=== PATIENT | male | born 1980 | race Caucasian/White ===

== ENCOUNTER 2018-11-16 16:04 | Emergency (ER) | payer SELFPAY ==
[~2018-11-16] VITALS: Ht 170.2 cm; Wt 90.9 kg
[2018-11-16 16:08] VITALS: TEMP 97.5
[2018-11-16 16:23] LABS: INR 1.2 (0.8-3.0); PROTHROMBIN TIME 13.4 SECONDS (9.7-12.8)
[2018-11-16 16:25] LABS: BASO % 0.3 % (0.0-2.0); EOS % 0.2 % (0-4.0); GRAN # 6.2 (1.4-6.5); GRAN % 72.1 % (42.2-75.2); HEMATOCRIT 41.3 % (42.0-52.0); HEMOGLOBIN 14.4 g/dl (13.5-18.0); LYMPH # 1.7 (1.2-3.4); LYMPH % 19.6 % (20.0-51.0); MEAN CELL VOLUME 84 fl (80.0-100.0); MEAN CORPUSCULAR HEMOGLOBIN 29 pg (27.0-31.0); MEAN CORPUSCULAR HGB CONC 35 g/dl (33.0-37.0); MEAN PLATELET VOLUME 9.2 fl (7.4-10.4); MONO # 0.6 (0.1-0.6); MONO % 7.3 % (1.7-9.3); PLATELET COUNT 319 K/mm3 (130-400); RED BLOOD COUNT 4.94 M/mm3 (4.20-5.60); REDCELL DISTRIBUTION WIDTH-CV 11.9 % (11.5-14.5)
[2018-11-16] MEDS ORDERED: TYLENOL 500MG500 MG PO (16:25)
[2018-11-16 16:37] LABS: ALANINE AMINOTRANSFERASE 47 U/L (21-72); ALBUMIN 4.5 gm/dL (3.5-5.0); ALKALINE PHOSPHATASE 80 U/L (50-136); ANION GAP 10 mmol/L (7-16); AST,SGOT 38 U/L (15-37); BILIRUBIN,TOTAL 1.8 mg/dL (0.0-1.0); BLOOD UREA NITROGEN 17 mg/dL (9-20); CALCIUM 9.1 mg/dL (8.4-10.2); CARBON DIOXIDE 21 mmol/L (22-30); CHLORIDE 106 mmol/L (98-107); CREATININE, serum 1.01 (0.66-1.25); GLUCOSE 93 mg/dL (74-106); POTASSIUM 3.3 mmol/L (3.4-5.0); SODIUM 136 mmol/L (137-145); TOTAL PROTEIN 7.7 gm/dL (6.4-8.2)
[2018-11-16 16:38] LABS: C-REACTIVE PROTEIN < 0.5 mg/dL (0.0-0.9)
[2018-11-16 18:04] LABS: COLLECTION METHOD CLEAN CATCH
[2018-11-16 18:09] LABS: PH 7 (5-8); SQUAMOUS EPITHELIAL None Seen /hpf; URINE APPEARANCE Clear; URINE BACTERIA None Seen /hpf; URINE BILIRUBIN Negative (NEGATIVE); URINE BLOOD Negative (NEGATIVE); URINE COLOR Straw; URINE GLUCOSE Negative (NEGATIVE); URINE KETONE 1+ (NEGATIVE); URINE LEUKOCYTE ESTERASE Negative (NEGATIVE); URINE NITRATE Negative (NEGATIVE); URINE PROTEIN(semi-quant) Negative (NEGATIVE); URINE RBC 0-2 /hpf; URINE UROBILINOGEN Negative (NEGATIVE)
[2018-11-16 18:12] LABS: TRICYCLIC ANTIDEPRESS URINE NEGATIVE
[2018-11-16 18:50] VITALS: BP 134/110; PULSE 80
== END 2018-11-16 18:50 | disposition home or self-care (01) ==
LOC: COL.ER 16:04
PROVIDERS: Family Medicine
DX: R55 Syncope and collapse (principal); I10 Essential (primary) hypertension
CPT/HCPCS: A9585; J7030

== ENCOUNTER 2019-06-19 19:09 | Emergency (ER) | payer SELFPAY ==
[~2019-06-19] VITALS: Ht 167.6 cm; Wt 71.8 kg
[~2019-06-19 19:09] MED LIST: TYLENOL 500MG500 MG PO
[2019-06-19 19:13] VITALS: BP 141/98; TEMP 98.5
[2019-06-19] MEDS ORDERED: DOXYCYCLINE 10100 MG PO (19:46)
[2019-06-19 19:54] VITALS: PULSE 108
== END 2019-06-19 19:56 | disposition home or self-care (01) ==
LOC: COL.ER 19:09
DX: L02.511 Cutaneous abscess of right hand (principal); F17.210 Nicotine dependence, cigarettes, uncomplicated

== ENCOUNTER 2020-08-06 11:29 | Emergency (ER) | payer SELFPAY ==
[~2020-08-06] VITALS: Ht 170.2 cm; Wt 81.8 kg
[~2020-08-06 11:29] MED LIST changes: +DOXYCYCLINE 10100 MG PO
[2020-08-06 12:46] VITALS: BP 152/66; PULSE 62; TEMP 97
== END 2020-08-06 12:49 | disposition home or self-care (01) ==
LOC: COL.ER 11:29
DX: S93.602A Unspecified sprain of left foot, initial encounter (principal); W10.9XXA Fall (on) (from) unspecified stairs and steps, initial encounter

== ENCOUNTER 2020-09-13 14:24 | Emergency (ER) | payer SELFPAY ==
[~2020-09-13] VITALS: Ht 167.6 cm; Wt 90.9 kg
[2020-09-13] MEDS ORDERED: AMOXICILLIN875 MG PO (15:05)
[2020-09-13] MEDS ORDERED: PREDNISONE20 MG PO (15:05)
[2020-09-13 15:27] VITALS: BP 136/74; PULSE 62; TEMP 98
== END 2020-09-13 15:28 | disposition home or self-care (01) ==
LOC: COL.ER 14:24
DX: H65.91 Unspecified nonsuppurative otitis media, right ear (principal); F17.210 Nicotine dependence, cigarettes, uncomplicated

== ENCOUNTER 2022-05-17 18:27 | Emergency (ER) | payer OTHER ==
[~2022-05-17] VITALS: Ht 170.2 cm; Wt 93.6 kg
[~2022-05-17 18:27] MED LIST changes: +AMOXICILLIN875 MG PO; +PREDNISONE20 MG PO
[2022-05-17 18:31] VITALS: TEMP 98.2
[2022-05-17 19:13] LABS: STREP SCREEN NEGATIVE
[2022-05-17] MEDS ORDERED: TESSALON PERLE200 MG PO (19:19)
[2022-05-17 19:30] VITALS: BP 130/89; PULSE 75
== END 2022-05-17 19:30 | disposition home or self-care (01) ==
LOC: COL.ER 18:27
PROVIDERS: Emergency Medicine
DX: R05.9 Cough, unspecified (principal); Z20.822 Contact with and (suspected) exposure to COVID-19